=== PATIENT | male | born 2000 | race African-American/Black ===

== ENCOUNTER 2021-06-29 07:05 | Emergency (ER) | payer OTHER ==
[~2021-06-29] VITALS: Ht 182.9 cm; Wt 60.9 kg
[2021-06-29 11:36] VITALS: BP 111/61
== END 2021-06-29 11:45 | disposition home or self-care (01) ==
LOC: M ED 07:05
DX: D16.21 Benign neoplasm of long bones of right lower limb (principal); R10.9 Unspecified abdominal pain